=== PATIENT | male | born 1975 | race Caucasian/White ===

== ENCOUNTER → 2018-03-24 | Outpatient (CLI) | payer BC ==
--- NOTE | 2018-03-25 07:28 | CT ---
EXAMINATION TYPE: CT sinus wo con DATE OF EXAM: 03/24/2018 COMPARISON: NONE HISTORY: sinus and facial congestion per patient. Chronic sinusitis per order. CT DLP: 465.2 mGycm. Automated Exposure Control for Dose Reduction was Utilized. TECHNIQUE: CT scan of the sinuses is performed without contrast, axial images are obtained, coronal r eformatted images are also reviewed. FINDINGS: There is mild mucosal thickening seen in the periphery of the bilateral maxillary sinuses e xtending towards the antrum. Remainder paranasal sinuses are clear. No suspicious opacification or ai r-fluid levels is seen. The ostiomeatal complex is patent bilaterally on the coronal images. Visualized portion of mastoid air cells show no abnormal opacification. The globes are intact bilate rally. IMPRESSION: Mild chronic maxillary sinus disease. No acute sinusitis.
== END | disposition home or self-care (01) ==
LOC: RADCTMAIN 16:49
PROVIDERS: ATTEND Otolaryngology
DX: J32.0 Chronic maxillary sinusitis (principal)
CPT/HCPCS: 70486

== ENCOUNTER 2019-10-23 09:58 | Emergency (ER) | payer BC ==
[2019-10-23 10:04] VITALS: RESP 18
[2019-10-23] MEDS ORDERED: SODIUM CHLORIDE 0.9% 1,000 ML IV STA (10:27)
[2019-10-23] MEDS ORDERED: KETOROLAC 30 MG/ML 1 ML VIAL IVP STA (10:27)
--- NOTE | 2019-10-23 10:38 | ED ---
Abdominal Pain HPI - General Chief Complaint: Abdominal Pain Stated Complaint: Abd pain Time Seen by Provider: 10/23/19 10:13 Source: patient Mode of arrival: ambulatory Limitations: no limitations - History of Present Illness Initial Comments: Patient is a 44-year-old male presenting to emergency Department with complaints of right-sided abdominal pain 2 days. Patient states 2 days ago he experienced some abdominal cramping, had a bowel movement which did seem to relieve some of the symptoms. Throughout the day the pain started progressing more onto the right side extending to the back. Patient states he did have an episode of vomiting. All day yesterday he felt a little nauseous and intermittent pain again on the right side of his belly. Patient states today the pain has continued, is intermittent and describes it as a cramping sensation mostly on his right upper side extending through the right flank area. He denies any fever or chills. He denies any chest pain or shortness of breath. He does admit to being every day smoker, occasional drinker but states he does sometimes drink daily. He denies any other drug use. He denies any hematuria or dysuria. He has no further complaints at this time. Upon arrival to the ER, his vitals are stable. - Related Data Home Medications Medication Instructions Recorded Confirmed Atorvastatin [Lipitor] 20 mg PO DAILY 10/23/19 10/23/19 Ibuprofen [Motrin Ib] 400 mg PO Q8H PRN 10/23/19 10/23/19 Lisinopril [Zestril] 5 mg PO DAILY 10/23/19 10/23/19 Previous Rx's Medication Instructions Recorded Ketorolac [Toradol] 10 mg PO Q8HR #10 tab 10/23/19 Tamsulosin [Flomax] 0.4 mg PO DAILY #7 cap 10/23/19 Allergies Allergy/AdvReac Type Severity Reaction Status Date / Time No Known Allergies Allergy Verified 10/23/19 10:25 Review of Systems ROS Statement: Those systems with pertinent positive or pertinent negative responses have been documented in the HPI. ROS Other: All systems not noted in ROS Statement are negative. Past Medical History Past Medical History: Hypertension History of Any Multi-Drug Resistant Organisms: None Reported Past Surgical History: Orthopedic Surgery Additional Past Surgical History / Comment(s): Right leg surgery, nasal sx Past Psychological History: No Psychological Hx Reported Smoking Status: Current every day smoker Past Alcohol Use History: Occasional Past Drug Use History: None Reported General Exam - General Exam Comments Initial Comments: GENERAL: Well-appearing, well-nourished and in no acute distress. HEAD: Atraumatic, normocephalic. EYES: Pupils equal round and reactive to light, extraocular movements intact, sclera anicteric, conjunctiva are normal. ENT: TMs normal, nares patent, oropharynx clear without exudates. Moist mucous membranes. NECK: Normal range of motion, supple without lymphadenopathy or JVD. LUNGS: Breath sounds clear to auscultation bilaterally and equal. No wheezes rales or rhonchi. HEART: Regular rate and rhythm without murmurs, rubs or gallops. ABDOMEN: Tender to palpation on the right upper quadrant, right side of the abdomen. No flank pain. Soft, normoactive bowel sounds. No guarding, no rebound. No masses appreciated. : Deferred EXTREMITIES: Normal range of motion, no pitting or edema. No clubbing or cyanosis. NEUROLOGICAL: Normal speech, normal gait. PSYCH: Normal mood, normal affect. SKIN: Warm, Dry, normal turgor, no rashes or lesions noted. Limitations: no limitations Course Vital Signs 10/23/19 10:01 Temperature 98.2 F Pulse Rate 100 Respiratory 18 Rate Blood Pressure 160/94 O2 Sat by Pulse 100 Oximetry Medical Decision Making - Medical Decision Making Patient is a 44-year-old male presenting with right-sided abdominal pain, vomiting 2 days. His vitals are stable upon arrival. On exam he does have some right sided abdominal pain, right upper quadrant. Laboratory shows slight leukocytosis of 14.2, creatinine is 1.42, no previous to compare. Lactic acid is normal at 0.8, urine shows no signs of infection. CT of abdomen shows a 4 mm distal right ureteral stone with some mild right hydronephrosis. Patient was given some fluids and Toradol and has been stable the ER. He states his pain is minimal. I discussed these findings with the patient. He is stable for discharge. He'll continue to increase his fluid intake, Toradol as needed for discomfort as well as Flomax. He will follow up with his PCP. He is in agreement this plan of care. Return parameters were discussed with the patient and he verbalized understanding. Case discussed with Dr. Resrtepo. - Lab Data Result diagrams: 10/23/19 10:38 10/23/19 10:38 Lab Results 10/23/19 10/23/19 10/23/19 Range/Units 10:38 10:38 10:38 WBC 14.2 H (3.8-10.6) k/uL RBC 5.13 (4.30-5.90) m/uL Hgb 16.0 (13.0-17.5) gm/dL Hct 47.7 (39.0-53.0) % MCV 93.1 (80.0-100.0) fL MCH 31.1 (25.0-35.0) pg MCHC 33.5 (31.0-37.0) g/dL RDW 12.7 (11.5-15.5) % Plt Count 199 (150-450) k/uL Neutrophils % 82 % Lymphocytes % 10 % Monocytes % 5 % Eosinophils % 1 % Basophils % 1 % Neutrophils # 11.6 H (1.3-7.7) k/uL Lymphocytes # 1.4 (1.0-4.8) k/uL Monocytes # 0.7 (0-1.0) k/uL Eosinophils # 0.2 (0-0.7) k/uL Basophils # 0.1 (0-0.2) k/uL PT 9.8 (9.0-12.0) sec INR 0.9 (<1.2) APTT 24.9 (22.0-30.0) sec Sodium (137-145) mmol/L Potassium (3.5-5.1) mmol/L Chloride (98-107) mmol/L Carbon Dioxide (22-30) mmol/L Anion Gap mmol/L BUN (9-20) mg/dL Creatinine (0.66-1.25) mg/dL Est GFR (CKD-EPI)AfAm (>60 ml/min/1.73 sqM) Est GFR (CKD-EPI)NonAf (>60 ml/min/1.73 sqM) Glucose (74-99) mg/dL Plasma Lactic Acid Lambert (0.7-2.0) mmol/L Calcium (8.4-10.2) mg/dL Total Bilirubin (0.2-1.3) mg/dL AST (17-59) U/L ALT (4-49) U/L Alkaline Phosphatase (38-126) U/L Total Protein (6.3-8.2) g/dL Albumin (3.5-5.0) g/dL Amylase (30-110) U/L Lipase (23-300) U/L Urine Color Light Yellow Urine Appearance Clear (Clear) Urine pH 6.0 (5.0-8.0) Ur Specific [place] 1.007 (1.001-1.035) Urine Protein Negative (Negative) Urine Glucose (UA) Negative (Negative) Urine Ketones 1+ H (Negative) Urine Blood Negative (Negative) Urine Nitrite Negative (Negative) Urine Bilirubin Negative (Negative) Urine Urobilinogen <2.0 (<2.0) mg/dL Ur Leukocyte Esterase Negative (Negative) Serum Alcohol mg/dL 10/23/19 10/23/19 Range/Units 10:38 10:38 WBC (3.8-10.6) k/uL RBC (4.30-5.90) m/uL Hgb (13.0-17.5) gm/dL Hct (39.0-53.0) % MCV (80.0-100.0) fL MCH (25.0-35.0) pg MCHC (31.0-37.0) g/dL RDW (11.5-15.5) % Plt Count (150-450) k/uL Neutrophils % % Lymphocytes % % Monocytes % % Eosinophils % % Basophils % % Neutrophils # (1.3-7.7) k/uL Lymphocytes # (1.0-4.8) k/uL Monocytes # (0-1.0) k/uL Eosinophils # (0-0.7) k/uL Basophils # (0-0.2) k/uL PT (9.0-12.0) sec INR (<1.2) APTT (22.0-30.0) sec Sodium 136 L (137-145) mmol/L Potassium 4.2 (3.5-5.1) mmol/L Chloride 102 (98-107) mmol/L Carbon Dioxide 24 (22-30) mmol/L Anion Gap 10 mmol/L BUN 24 H (9-20) mg/dL Creatinine 1.42 H (0.66-1.25) mg/dL Est GFR (CKD-EPI)AfAm 69 (>60 ml/min/1.73 sqM) Est GFR (CKD-EPI)NonAf 60 (>60 ml/min/1.73 sqM) Glucose 96 (74-99) mg/dL Plasma Lactic Acid Lambert 0.8 (0.7-2.0) mmol/L Calcium 9.7 (8.4-10.2) mg/dL Total Bilirubin 1.1 (0.2-1.3) mg/dL AST 27 (17-59) U/L ALT 30 (4-49) U/L Alkaline Phosphatase 92 (38-126) U/L Total Protein 7.7 (6.3-8.2) g/dL Albumin 4.8 (3.5-5.0) g/dL Amylase 56 (30-110) U/L Lipase 89 (23-300) U/L Urine Color Urine Appearance (Clear) Urine pH (5.0-8.0) Ur Specific [place] (1.001-1.035) Urine Protein (Negative) Urine Glucose (UA) (Negative) Urine Ketones (Negative) Urine Blood (Negative) Urine Nitrite (Negative) Urine Bilirubin (Negative) Urine Urobilinogen (<2.0) mg/dL Ur Leukocyte Esterase (Negative) Serum Alcohol <10 mg/dL Disposition Clinical Impression: Right distal ureteral calculus, Right sided abdominal pain Disposition: HOME SELF-CARE Condition: Stable Instructions (If sedation given, give patient instructions): Kidney Stones (ED) Additional Instructions: Please return to the Emergency Department if symptoms worsen or any other concerns. Take medications as prescribed. Follow-up with PCP. Prescriptions: Tamsulosin [Flomax] 0.4 mg PO DAILY #7 cap Ketorolac [Toradol] 10 mg PO Q8HR #10 tab Is patient prescribed a controlled substance at d/c from ED?: No Referrals: Milena Chino MD [Primary Care Provider] - 1-2 days
[2019-10-23 10:52] LABS: Basophils # (A) 0.1 k/uL (0-0.2); Basophils % (A) 1 %; Eosinophils # (A) 0.2 k/uL (0-0.7); Eosinophils % (A) 1 %; HCT 47.7 % (39.0-53.0); Lymphocytes # (A) 1.4 k/uL (1.0-4.8); Lymphocytes % (A) 10 %; MCH 31.1 pg (25.0-35.0); MCHC 33.5 g/dL (31.0-37.0); MCV 93.1 fL (80.0-100.0); Mean Platelet Volume 8.1; Monocytes # (A) 0.7 k/uL (0-1.0); Monocytes % (A) 5 %; Neutrophils # (A) 11.6 k/uL (1.3-7.7); Neutrophils % (A) 82 %; Platelet Count 199 k/uL (150-450); RBC 5.13 m/uL (4.30-5.90); RDW 12.7 % (11.5-15.5); WBC 14.2 k/uL (3.8-10.6)
[2019-10-23 10:55] LABS: Appearance,Urine Clear (Clear); Bilirubin,Urine Negative (Negative); Blood,Urine Negative (Negative); Color,Urine Light Yellow; Glucose,Urine (UA) Negative (Negative); Ketones,Urine 1+ (Negative); Leukocyte Esterase,Urine Negative (Negative); Nitrite,Urine Negative (Negative); Protein,Urine Negative (Negative); Specific Gravity,Urine 1.007 (1.001-1.035); Urobilinogen,Urine <2.0 mg/dL (<2.0)
[2019-10-23 11:05] LABS: ALT 30 U/L (4-49); AST 27 U/L (17-59); African American GFR (CKD) 69 (>60 ml/min/1.73 sqM); Albumin 4.8 g/dL (3.5-5.0); Alcohol <10 mg/dL; Alkaline Phosphatase 92 U/L (38-126); Amylase 56 U/L (30-110); Anion Gap 10 mmol/L; Blood Urea Nitrogen 24 mg/dL (9-20); Calcium 9.7 mg/dL (8.4-10.2); Carbon Dioxide 24 mmol/L (22-30); Chloride 102 mmol/L (98-107); Glucose 96 mg/dL (74-99); INR 0.9 (<1.2); Non-African American GFR(CKD) 60 (>60 ml/min/1.73 sqM); Partial Thromboplastin Time 24.9 sec (22.0-30.0); Potassium 4.2 mmol/L (3.5-5.1); Prothrombin Time 9.8 sec (9.0-12.0); Sodium 136 mmol/L (137-145); Total Bilirubin 1.1 mg/dL (0.2-1.3); Total Protein 7.7 g/dL (6.3-8.2)
--- NOTE | 2019-10-23 11:58 | CT ---
EXAMINATION TYPE: CT abdomen pelvis w con DATE OF EXAM: 10/23/2019 COMPARISON: None HISTORY: Right sided abdominal pain CT DLP: 1202 mGycm Automated exposure control for dose reduction was used. TECHNIQUE: Helical acquisition of images from the lung bases through the pelvis have been completed. CONTRAST: Performed without Oral Contrast and with IV Contrast, patient injected with 100 ml mL of Isovue 300. FINDINGS: LUNG BASES: No significant abnormality is appreciated. AORTA: No significant abnormality is appreciated. LIVER/GB: No significant abnormality is appreciated. PANCREAS: No significant abnormality is seen. SPLEEN: No significant abnormality is seen. ADRENALS: No significant abnormality is seen. KIDNEYS: Decreased right nephrogram as compared to the left, perinephric fluid and right-sided hydron ephrosis are present, there is right-sided hydroureter, distal right ureteral calculus measures appro ximately 4 mm. Parapelvic cysts are noted on the left. Periureteral fluid, inflammatory change is mil d REPRODUCTIVE ORGANS: Prostate shows some associated calcification BOWEL: No significant abnormality is seen. The appendix is normal. FREE AIR: No Free Air visible. ASCITES: None visible. PELVIC ADENOPATHY: None visualized. RETROPERITONEAL ADENOPATHY: No Retroperitoneal Adenopathy visible. URINARY BLADDER: No significant abnormality is seen. OSSEOUS STRUCTURES: Postop changes noted in the distal right femur. IMPRESSION: OBSTRUCTIVE DISTAL RIGHT URETERAL CALCULUS.
[2019-10-23 12:52] VITALS: BP 138/72; PULSE 70; TEMP 97.8
== END 2019-10-23 12:35 | disposition home or self-care (01) ==
LOC: EC 09:58
DX: N13.2 Hydronephrosis with renal and ureteral calculous obstruction (principal); D72.829 Elevated white blood cell count, unspecified; R11.2 Nausea with vomiting, unspecified; I10 Essential (primary) hypertension; F17.200 Nicotine dependence, unspecified, uncomplicated; Z79.899 Other long term (current) drug therapy
CPT/HCPCS: 96374; 96361 ×2; 99284; 36415; 80053; 82150; 83605; 83690; 85025; 85610; 85730; 81003; 80320; 74177; J1885; Q9967

== ENCOUNTER → 2020-06-06 | Outpatient (CLI) | payer BC | END | disposition home or self-care (01) | LOC: LABWHC1 16:39 | PROVIDERS: ATTEND Internal Medicine | DX: Z20.822 Contact with and (suspected) exposure to COVID-19 (principal) | CPT/HCPCS: U0003; C9803 ==

== ENCOUNTER → 2021-05-01 | Outpatient (CLI) | payer BC ==
--- NOTE | 2021-05-01 09:40 | XR ---
EXAMINATION TYPE: XR chest 2V DATE OF EXAM: 05/01/2021 COMPARISON: NONE HISTORY: Chest pain TECHNIQUE: Frontal and lateral views of the chest are obtained. FINDINGS: There is no focal air space opacity, pleural effusion, or pneumothorax seen. The cardiac silhouette size is within normal limits. The osseous structures are intact, there is thoracic spond ylosis. IMPRESSION: No acute cardiopulmonary process.
== END | disposition home or self-care (01) ==
LOC: RADXRYALE 09:17
PROVIDERS: ATTEND Internal Medicine
DX: R07.1 Chest pain on breathing (principal)
CPT/HCPCS: 71046